=== PATIENT | male | born 1945 | race Two or more races ===

== ENCOUNTER 2017-07-07 06:11 | Day surgery (SDC) | payer MEDICARE ==
[2017-07-07] MEDS ORDERED: PROSCAR5 MG PO (07:29)
[2017-07-07] MEDS ORDERED: FLOMAX0.4 MG PO (07:29)
[2017-07-07 07:33] VITALS: BP 127/63; BMI 25.1
--- NOTE | 2017-07-07 10:50 | NUR ---
PT REC'D TO ROOM FROM PACU VIA STRETCHER. DROWSY, BUT RESPONDS TO VERBAL STIMULI. EXCISION SITE ON LEFT CHEST AREA C/D/I WITH DERMABOND. WATER PROVIDED.
--- NOTE | 2017-07-07 12:02 | NUR ---
IV DC WITH CATHER TIP INTACT
--- NOTE | 2017-07-08 10:17 | HP ---
PATIENT: ALEXYS GARBER MEDICAL RECORD: [id number] ACCOUNT: [id number] LOCATION:[facility] : 43 ADMISSION DATE: 07/07/17 HISTORY AND PHYSICAL EXAMINATION CHIEF COMPLAINT: Here for endoscopy. HISTORY OF PRESENT ILLNESS: The patient has a number of keloids. Only 1 is symptomatic. He has a painful keloid that it is tender and involves the left lateral chest wall. He has a history of H. pylori and is to undergo an upper endoscopy to document clearing of the H. pylori. He has had a history of colon polyps and it is now time for a surveillance colonoscopy. The risks are well known to the patient. HOME MEDICINES: Finasteride, as well as Flomax. ALLERGIES: No known drug allergies. SOCIAL HISTORY: Nonsmoker. PAST MEDICAL AND SURGICAL HISTORY: Appendectomy, cholecystectomy, history of colon polyps. No fainting or seizures. No hypertension, no coronary artery disease. No diabetes, no thyroid problems. PHYSICAL EXAMINATION: GENERAL: The patient does not appear acutely ill. He does not appear chronically ill. VITAL SIGNS: Reviewed. EARS: External ears appear normal. EYES: Extraocular movements are intact. NECK: Trachea is midline. CHEST: No intercostal retractions. PULMONARY: Nonlabored, no stridor. ABDOMEN: No peritonitis with movement. IMPRESSION 1. Painful keloid, left lateral chest wall. 2. History of Helicobacter pylori. 3. History of colon polyps. PLAN: Excision of the keloid. EGD. Colonoscopy, which is a surveillance colonoscopy. TRANSINT:[id number] Voice Confirmation ID: [id number] DOCUMENT ID: [id number] HISTORY AND PHYSICAL [id number] ALEXYS GARBER ROBERT MD at 1017 CC: [id number] DICTATION DATE: 07/07/17 1034 ADMISSIONS CLINICIAN: 07/07/17 1058 [facility] 07/07/17 [id number] [place] [address]
--- NOTE | 2017-07-08 10:17 | OP ---
PATIENT NAME: ALEXYS GARBER MEDICAL RECORD: [id number] :43 LOCATION:D.OPS ADMISSION DATE: SURGEON: RIO FARLEY MD DATE OF OPERATION: 07/07/2017 PREOPERATIVE DIAGNOSES: 1. Painful keloid of the left lateral chest wall. 2. History of H. pylori in need of upper endoscopy to document clearance of the H. pylori. 3. History of colon polyps in need of a surveillance colonoscopy. POSTOPERATIVE DIAGNOSES: 1. Painful keloid of the left lateral chest wall. 2. History of H. pylori in need of upper endoscopy to document clearance of the H. pylori. 3. History of colon polyps in need of a surveillance colonoscopy. 4. Please see dimensions of the keloid below. There was one new colon polyp, which was a sessile polyp and was at 70 cm. The polyp was 5-mm in size. PROCEDURE: 1. Excisional of keloid, left lateral chest wall. The keloid was a fairly linear and it measured 5.0 x 1.9 cm. The excision was 7.0 x 2.2 cm. This was an intermediate closure. 2. Esophagogastroduodenoscopy with antral biopsies. 3. Total colonoscopy to cecum. 4. Hot biopsy forceps polypectomy times 1. SURGEON: Rio Farley MD JOB COACH/JOB DEVELOPER: None. BLOOD LOSS: Minimal. ANESTHESIA: General. COMPLICATIONS: None. The risks, possible complications and alternatives to the procedure were explained to the patient. He elects to proceed. The discussion specifically included the risk of recurrent keloid formation. OPERATIVE COURSE: The patient was conveyed to the operating room electively on 07/07/2017. General anesthesia was induced by the anesthesia staff. The left lateral chest wall was sterilely prepped and draped. Measurements were obtained. Through the use of double curvilinear incisions, the skin and subcutaneous tissue and the keloid was excised. The dimensions of the excision are listed above. Subcutaneous flaps were created sharply. The subdermis was approximated with interrupted 3-0 Vicryls. The skin was approximated with a running intracuticular 3-0 Vicryl. Dermabond was then applied. Attention was then turned to the EGD. A bite block was inserted. A gastroscope was inserted into the mouth. The esophagus was easily intubated as were the stomach and duodenum. Upon withdrawal, retroflexed and angulus views were obtained. Cold endoscopic biopsies were obtained. The esophageal biopsies were obtained as well to rule out Hutchison esophagus or eosinophilic esophagitis. The OPERATIVE REPORT [id number] ALEXYS GARBER Kathy duodenum was normal. The stomach was normal. There was a small hiatal hernia. The esophagus appeared normal. The patient was turned 180 degrees and placed in the Bray position. A digital rectal examination was performed. A colonoscope was inserted through the anus. It was easily advanced to the cecum. The prep was good. The patient had pandiverticulosis including right-sided diverticulosis and even diverticulosis in the cecum. I dragged the folds. The pullback was a 15-minute pullback. I utilized normal imaging as well as narrow band imaging. One polyp was noted. It was removed utilizing the hot biopsy forceps polypectomy technique. A retroflexed view was obtained in the rectum. I then unretroflexed the scope and removed it under direct vision. There is no need for the patient to follow up with me in the office. 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 I will plan for his next surveillance colonoscopy to take place in 5 years. TRANSINT:[id number] Voice Confirmation ID: [id number] DOCUMENT ID: [id number] RIO FARLEY MD at 1017 CC: [id number] DICTATION DATE: 07/07/17 1049 HYDRAULIC ELEVATOR CONSTRUCTOR: 07/07/17 1105 [facility] 07/07/17 [place] [address]
== END 2017-07-07 12:11 | disposition home or self-care (01) ==
LOC: D.OPS 06:11 → D.PAN 08:00 → D.OPS 08:00
DX: L91.0 Hypertrophic scar (principal); Z86.010 Personal history of colon polyps; K63.5 Polyp of colon; Z87.19 Personal history of other diseases of the digestive system; Z01.812 Encounter for preprocedural laboratory examination